=== PATIENT | male | born 1995 | race American Indian/Alaskan Native ===

== ENCOUNTER 2019-01-05 14:36 | Emergency (ER) | payer OTHER ==
--- NOTE | 2019-01-05 15:13 | Emergency Department Report ---
Chief Complaint: Wound/Laceration Stated Complaint: LFT HAND INJURY/PAIN Time Seen by Provider: 01/05/19 15:10 - HPI History of Present Illness: pt presents with laceration to the left hand small 1 cm laceration cutting a box with a razor bleeding controlled states last tetanus was 2 months ago no PMHx (+) marijuana denies tobacco (+) drinker MSE screening note: Focused history and physical exam performed. ED Disposition for MSE Condition: Stable
--- NOTE | 2019-01-05 15:38 | Emergency Department Report ---
ED Laceration HPI - HPI Chief Complaint: Wound/Laceration Stated Complaint: LFT HAND INJURY/PAIN Time Seen by Provider: 01/05/19 15:10 Occurred When: Today Location: Upper Extremity Severity: mild Tetanus Status: Up to Date Laceration Symptoms: No Foreign Body Sensation, No Numbness, No Weakness, No Pain Other History: pt has small 3/4 inch lac to l hand that he did with a razor today. he is utd on his tdap. lac is superficial ED Review of Systems ROS: Stated complaint: LFT HAND INJURY/PAIN Other details as noted in HPI Comment: All other systems reviewed and negative ED Past Medical Hx - Past Medical History Previous Medical History?: No - Surgical History Past Surgical History?: No - Family History Family history: no significant - Social History Smoking Status: Never Smoker Substance Use Type: Alcohol, Marijuana - Medications Home Medications: Home Medications Medication Instructions Recorded Confirmed Last Taken Type Albuterol Sulfate [Ventolin HFA] 2 puff IH Q4H PRN #1 hfa.aer.ad 04/13/16 Unknown Rx Amoxicillin/K Clav Tab [Augmentin 1 tab PO Q12HR #20 tab 04/13/16 Unknown Rx 875 mg] Fluticasone [Flonase] 2 spray NS QDAY #1 bottle 04/13/16 Unknown Rx Loratadine [Claritin] 10 mg PO DAILY #30 tablet 04/13/16 Unknown Rx Prednisone [predniSONE 10 mg 10 mg PO .TAPER #1 tab.ds.pk 04/13/16 Unknown Rx (6-Day Pack, 21 Tabs)] Laceration Physical Exam - Exam General: Vital signs noted. No distress. Alert and acting appropriately. Laceration Exam: Yes Normal Distal CMS, No Foreign Body, No Exposed Tendon, Vessel, or Nerve, No Tendon Injury ED Course Vital Signs 01/05/19 15:11 Temperature 98.1 F Pulse Rate 80 Respiratory 19 Rate Blood Pressure 129/90 [Left] O2 Sat by Pulse 99 Oximetry - Laceration /Wound Repair l hand Wound Location: upper extremity Wound Length (cm): 2 Wound's Depth, Shape: superficial Wound Explored: clean Irrigated w/ Saline (ccs): 20 Betadine Prep?: Yes Wound Repaired With: Dermabond Layer Closure?: No Sterile Dressing Applied?: Yes Progress: closed with steristrips and dermabond tolerated well ED Medical Decision Making - Medical Decision Making simple lac repaired with dermabond and steri strips Vital Signs 01/05/19 15:11 Temperature 98.1 F Pulse Rate 80 Respiratory 19 Rate Blood Pressure 129/90 [Left] O2 Sat by Pulse 99 Oximetry Critical care attestation.: If time is entered above; I have spent that time in minutes in the direct care of this critically ill patient, excluding procedure time. ED Disposition Clinical Impression: Laceration Disposition: DC-01 TO HOME OR SELFCARE Is pt being admited?: No Does the pt Need Aspirin: No Condition: Stable Instructions: Laceration (ED) Additional Instructions: keep iced today diet as tolerated activity as tolerated hydrate well with water keep clean and covered during the day do not remove the steri strips they will fall off on their own motrin or tylenol for pain Referrals: [facility] [Outside] - 3-5 Days Time of Disposition: 15:37
[2019-01-05 16:03] VITALS: BP 124/86
== END 2019-01-05 16:02 | disposition home or self-care (01) ==
LOC: ED 14:36
DX: S61.412A Laceration without foreign body of left hand, initial encounter (principal); F12.10 Cannabis abuse, uncomplicated; Z79.899 Other long term (current) drug therapy; W26.9XXA Contact with unspecified sharp object(s), initial encounter; Y93.89 Activity, other specified; Y92.89 Other specified places as the place of occurrence of the external cause; Y99.8 Other external cause status
CPT/HCPCS: 99282